=== PATIENT | female | born 1925 | race African-American/Black ===

== ENCOUNTER 2016-06-09 18:09 | Inpatient (IN) | payer MEDICARE, BC, MEDICAID ==
[~2016-06-09] VITALS: Ht 165.1 cm; Wt 69.6 kg
[~2016-06-09 18:09] MED LIST: ACET-2178 PO; AMLO10TA4 PO; ASPI-1035 PO; CINA30 PO; CLOP75TA33 PO; DOCU-138 PO; DOXA4TAB2 PO; IPRA3AMP9 INH; ISOS60TA4 PO; LEVO50TA70 PO; LOSA50TA3 PO; MEMA10TA11 PO; METO25TA6 PO; NEPVIT PO; OMEP20TA80 PO
[2016-06-09] MEDS ORDERED: METHYLPREDNISOLONE SOD SUCC 125 MG/2 ML VIAL IV STA (18:25)
[2016-06-09] MEDS ORDERED: ASPIRIN 81MG TABLET PO STA (18:25)
[2016-06-09] MEDS ORDERED: IPRATROPIUM/ALBUTEROL 0.5-3(2.5)MG/3ML NEB HHN ONE (18:30)
[2016-06-09] MEDS ORDERED: LEVOFLOXACIN 750MG PREMIX 150 ML IV ONE (18:30)
[2016-06-09 18:53] LABS: BG BASE EXCESS 6.3 mmol/L (-2.0-2.0); BG CARBOXYHEMOGLOBIN 1.7 % (0.5-1.5); BG FRACTION INSPIRED OXYGEN 28; BG HCO3 ACT 32.4 mmol/L (22.0-26.0); BG METHEMOGLOBIN 0.4 % (0.0-1.5); BG OXYHEMOGLOBIN 96.9 % (94.0-97.0); BG PCO2 52.5 mmHg (35.0-45.0); BG PH 7.408 (7.350-7.450); BG PO2 116.7 mmHg (75.0-100.0); BG SAMPLE SITE LEFT BRACHIAL; BG TOTAL HEMOGLOBIN 13.7 g/dL (12.0-18.0); BG VENT MODE NASAL CANNULA
[2016-06-09 19:05] LABS: DIFFERENTIAL COMMENT 0; EOSINOPHILS % 7.4 % (0.0-5.0); HEMATOCRIT. 42.9 % (36.0-48.0); HEMOGLOBIN. 13.1 g/dL (12.0-16.0); LYMPHOCYTES % 9.9 % (20.0-50.0); MEAN CORPUSCULAR HEMOGLOBIN 26.2 pg (28.0-32.0); MEAN CORPUSCULAR HGB CONC 30.5 g/dL (31.0-37.0); MEAN PLATELET VOLUME 8.2 fl (7.4-10.4); MONOCYTES % 12.5 % (2.0-8.0); NEUTROPHILS % 69.2 % (40.0-76.0); PLATELET 101 x1000/uL (130-400); RED BLOOD CELL COUNT 4.99 mill/uL (4.2-5.4); RED CELL DISTRIBUTION WIDTH 18.3 % (11.6-14.6); WHITE BLOOD COUNT 6.4 x1000/uL (4.5-11.0)
[2016-06-09 19:11] LABS: INR 1.1; PARTIAL THROMBOPLASTIN TIME 33.4 sec (24.0-34.0); PROTHROMBIN TIME 11.2 sec
[2016-06-09 19:20] LABS: ALANINE AMINOTRANSFERASE 12 IU/L (13-61); ALBUMIN 3.3 g/dL (3.4-5.0); ANION GAP 11; CARBON DIOXIDE 35 mEq/L (21-32); CHLORIDE 97 mEq/L (98-107); CREATINE KINASE 25 IU/L (26-192); INDEX HEMOLYSI 2 (1-3); INDEX ICTERIC 1 (1-4); INDEX LIPEMIC 1 (1-3); LIPASE 96 IU/L (73-393); TROPONIN I < 0.02 ng/mL (0.00-0.04); UREA NITROGEN BLOOD 8 mg/dL (7-21); eGFR 21 mL/min (>60)
[2016-06-09 19:32] LABS: NT PRO B-TYPE NATRIURETIC PEP 104264 pg/mL (5-125)
[2016-06-09] MEDS ORDERED: ACETAMINOPHEN 325MG TABLET PO PRN (20:15)
[2016-06-09] MEDS ORDERED: LEVOFLOXACIN 500MG PREMIX 100 ML IV SCH (20:15)
[2016-06-09] MEDS ORDERED: DEXTROSE 50% WATER 50ML SYRINGE IV PRN (20:15)
[2016-06-09] MEDS ORDERED: CLONIDINE 0.1MG TABLET PO PRN (20:15)
[2016-06-09] MEDS ORDERED: ONDANSETRON HCL 4MG/2ML VIAL IV PRN (20:15)
[2016-06-09] MEDS ORDERED: MORPHINE SULFATE 2 MG/ML CPJ (NOT FOR IM USE) IV PRN (20:30)
[2016-06-09] MEDS: INSULIN LISPRO 100 UNITS/ML SUBCUT SCH (21:00)
[2016-06-09] MEDS: BLOOD SUGAR DIAGNOSTIC STRIP TEST SCH (21:00)
[2016-06-09] MEDS ORDERED: ZOLPIDEM TARTRATE 5MG TABLET PO PRN (22:37)
[2016-06-10] VITALS (7 sets, daily range): BP systolic 119–168; BP diastolic 56–89
[2016-06-10] MEDS: METHYLPREDNISOLONE SOD SUCC 125 MG/2 ML VIAL IV SCH ×3 (06:01→18:30)
[2016-06-10 06:35] LABS: BASOPHILS % 0.6 % (0.0-2.0); HEMATOCRIT. 39.8 % (36.0-48.0); HEMOGLOBIN. 12.6 g/dL (12.0-16.0); LYMPHOCYTES % 14.3 % (20.0-50.0); MEAN CORPUSCULAR HEMOGLOBIN 26.7 pg (28.0-32.0); MEAN CORPUSCULAR HGB CONC 31.6 g/dL (31.0-37.0); MEAN CORPUSCULAR VOLUME 84.5 fL (81.0-99.0); MEAN PLATELET VOLUME 8.7 fl (7.4-10.4); MONOCYTES % 1.9 % (2.0-8.0); NEUTROPHILS % 83.2 % (40.0-76.0); PLATELET 106 x1000/uL (130-400); RED BLOOD CELL COUNT 4.71 mill/uL (4.2-5.4); RED CELL DISTRIBUTION WIDTH 18.5 % (11.6-14.6); WHITE BLOOD COUNT 6.1 x1000/uL (4.5-11.0)
[2016-06-10] MEDS: IPRATROPIUM/ALBUTEROL 0.5-3(2.5)MG/3ML NEB INH SCH ×3 (06:38→21:01)
[2016-06-10] MEDS: BLOOD SUGAR DIAGNOSTIC STRIP TEST SCH ×4 (07:40→20:57)
[2016-06-10 07:54] LABS: ANION GAP 10; CALCIUM 9.2 mg/dL (8.5-10.1); CARBON DIOXIDE 35 mEq/L (21-32); CHLORIDE 95 mEq/L (98-107); INDEX HEMOLYSI 1 (1-3); INDEX ICTERIC 1 (1-4); INDEX LIPEMIC 1 (1-3); MAGNESIUM 2.6 mg/dL (1.8-2.4); PHOSPHORUS 1.6 mg/dL (2.5-4.9); TROPONIN I < 0.02 ng/mL (0.00-0.04); UREA NITROGEN BLOOD 17 mg/dL (7-21); eGFR 16 mL/min (>60)
[2016-06-10] MEDS: INSULIN LISPRO 100 UNITS/ML SUBCUT SCH ×4 (08:10→20:57)
[2016-06-10] MEDS: OMEPRAZOLE 20MG CAPSULE EXTENDED RELEASE PO SCH (09:16)
[2016-06-10] MEDS: ENOXAPARIN 30MG/0.3ML SYR SUBCUT SCH (09:20)
[2016-06-10] MEDS ORDERED: SODIUM CHLORIDE 0.9% 10ML VIAL ONE (12:59)
[2016-06-10] MEDS ORDERED: IOHEXOL-350 100 ML BOTTLE ONE (12:59)
[2016-06-10] MEDS ORDERED: SODIUM BICARBONATE 4% (2.4MEQ) 5ML VIAL IV ONE (13:06)
[2016-06-10] MEDS ORDERED: LIDOCAINE HCL 1% 20ML VIAL (Pyxis) INJ ONE (13:07)
[2016-06-10] MEDS ORDERED: DESMOPRESSIN ACETATE 4MCG/ML AMP IV ONE (19:15)
[2016-06-10] MEDS ORDERED: DESMOPRESSIN ACETATE 21 MCG in SODIUM CHLORIDE 0.9% 50 ML IV NR (21:00)
[2016-06-10 23:14] LABS: HEMOGLOBIN 11.7 g/dL (12.0-16.0)
[2016-06-11] VITALS: BP 123/89
[2016-06-11] MEDS: IPRATROPIUM/ALBUTEROL 0.5-3(2.5)MG/3ML NEB INH SCH ×4 (03:22→21:23)
[2016-06-11 04:00] VITALS: BP 123/70
[2016-06-11] MEDS: METHYLPREDNISOLONE SOD SUCC 125 MG/2 ML VIAL IV SCH ×3 (06:03→12:52)
[2016-06-11] MEDS: BLOOD SUGAR DIAGNOSTIC STRIP TEST SCH ×2 (07:40→12:59)
[2016-06-11 08:00] VITALS: BP 144/66
[2016-06-11] MEDS: INSULIN LISPRO 100 UNITS/ML SUBCUT SCH ×2 (08:10→12:59)
[2016-06-11] MEDS: OMEPRAZOLE 20MG CAPSULE EXTENDED RELEASE PO SCH (08:32)
[2016-06-11] MEDS: ENOXAPARIN 30MG/0.3ML SYR SUBCUT SCH (08:33)
[2016-06-11 10:00] LABS: BASOPHILS % 0.2 % (0.0-2.0); HEMATOCRIT. 37.1 % (36.0-48.0); HEMOGLOBIN. 11.4 g/dL (12.0-16.0); MEAN CORPUSCULAR HEMOGLOBIN 26.1 pg (28.0-32.0); MEAN CORPUSCULAR HGB CONC 30.8 g/dL (31.0-37.0); MEAN CORPUSCULAR VOLUME 84.6 fL (81.0-99.0); MEAN PLATELET VOLUME 9.2 fl (7.4-10.4); MONOCYTES % 8.4 % (2.0-8.0); NEUTROPHILS % 81.4 % (40.0-76.0); PLATELET 124 x1000/uL (130-400); RED BLOOD CELL COUNT 4.39 mill/uL (4.2-5.4); RED CELL DISTRIBUTION WIDTH 18.3 % (11.6-14.6); WHITE BLOOD COUNT 12.6 x1000/uL (4.5-11.0)
[2016-06-11 10:31] LABS: CALCIUM 9.5 mg/dL (8.5-10.1)
[2016-06-11 12:00] VITALS: BP 124/61
[2016-06-11 16:00] VITALS: BP 121/66
[2016-06-11] MEDS: PREDNISONE 20MG TABLET PO SCH (16:43)
[2016-06-11 20:00] VITALS: BP 142/75
[2016-06-11] MEDS ORDERED: LEVOFLOXACIN 250MG PREMIX 50 ML IV SCH (20:00)
[2016-06-11] MEDS: BACITRACIN ZINC 15GM TUBE TOP SCH (20:01)
[2016-06-12] VITALS: BP 142/67
[2016-06-12] MEDS: IPRATROPIUM/ALBUTEROL 0.5-3(2.5)MG/3ML NEB INH SCH ×3 (02:53→15:57)
[2016-06-12 04:00] VITALS: BP 152/73
[2016-06-12 07:31] LABS: BASOPHILS % 0.1 % (0.0-2.0); HEMATOCRIT. 36.2 % (36.0-48.0); HEMOGLOBIN. 11.3 g/dL (12.0-16.0); LYMPHOCYTES % 10.4 % (20.0-50.0); MEAN CORPUSCULAR HEMOGLOBIN 26.1 pg (28.0-32.0); MEAN CORPUSCULAR HGB CONC 31.2 g/dL (31.0-37.0); MEAN CORPUSCULAR VOLUME 83.6 fL (81.0-99.0); MEAN PLATELET VOLUME 8.6 fl (7.4-10.4); NEUTROPHILS % 82.5 % (40.0-76.0); PLATELET 148 x1000/uL (130-400); RED BLOOD CELL COUNT 4.33 mill/uL (4.2-5.4); RED CELL DISTRIBUTION WIDTH 18.1 % (11.6-14.6)
[2016-06-12 08:11] VITALS: BP 156/107
[2016-06-12] MEDS: OMEPRAZOLE 20MG CAPSULE EXTENDED RELEASE PO SCH (08:14)
[2016-06-12] MEDS: ENOXAPARIN 30MG/0.3ML SYR SUBCUT SCH (08:14)
[2016-06-12] MEDS: PREDNISONE 20MG TABLET PO SCH (08:14)
[2016-06-12 08:19] LABS: CALCIUM 9.4 mg/dL (8.5-10.1)
[2016-06-12] MEDS: BACITRACIN ZINC 15GM TUBE TOP SCH (08:22)
[2016-06-12 12:00] VITALS: BP 131/73
[2016-06-12 16:00] VITALS: BP 135/65
[2016-06-12 16:08] VITALS: BP 135/65
== END 2016-06-12 17:50 | DRG 291 ==
LOC: ER 18:09 → 7WST 20:09
PROVIDERS: ADMIT Internal Medicine Nephrology; ATTEND Internal Medicine Nephrology
PROC: 02HV33Z Insertion of Infusion Device into Superior Vena Cava, Percutaneous Approach (ICD-10-PCS; principal; 2016-06-10)
PROC: B5181ZA Fluoroscopy of Superior Vena Cava using Low Osmolar Contrast, Guidance (ICD-10-PCS; 2016-06-10)
PROC: B548ZZA Ultrasonography of Superior Vena Cava, Guidance (ICD-10-PCS; 2016-06-10)
PROC: 5A1D60Z (ICD-10-PCS; 2016-06-10)
DX: I13.2 Hypertensive heart and chronic kidney disease with heart failure and with stage 5 chronic kidney disease, or end stage renal disease (principal); N18.6 End stage renal disease; I50.20 Unspecified systolic (congestive) heart failure; D69.6 Thrombocytopenia, unspecified; E03.9 Hypothyroidism, unspecified; E11.22 Type 2 diabetes mellitus with diabetic chronic kidney disease; I48.91 Unspecified atrial fibrillation; J44.9 Chronic obstructive pulmonary disease, unspecified; J45.909 Unspecified asthma, uncomplicated; Z79.82 Long term (current) use of aspirin; Z82.49 Family history of ischemic heart disease and other diseases of the circulatory system; Z99.2 Dependence on renal dialysis; Z87.01 Personal history of pneumonia (recurrent); Z88.0 Allergy status to penicillin; Z88.2 Allergy status to sulfonamides; Z79.899 Other long term (current) drug therapy
CPT/HCPCS: 36415; 36569; 36600; 71010; 71275; 76937; 77001; 78580; 80048; 80053; 82375; 82550; 82805; 82962; 83605; 83690; 83735; 83880; 84100; 84443; 84484; 85014; 85018; 85025; 85610; 85730; 87040; 93005; 93970; 94640; 94664; 96365; 96375; 99285; A4216; C1725; J1650; J1956; J2597; J2930; J3490; J7030; J7050; J7512; J7620; Q9967

== ENCOUNTER 2017-04-11 12:07 | Inpatient (IN) | payer MEDICARE, BC, MEDICAID ==
[~2017-04-11] VITALS: Ht 162.6 cm; Wt 82.6 kg
[~2017-04-11 12:07] MED LIST changes: -ASPI-1035 PO; +ASPI-1159 PO; +DUONEB3 ML INH; -IPRA3AMP9 INH; +LEVO50TA PO; -LEVO50TA70 PO; -MEMA10TA11 PO; +MEMA10TA2 PO; +OMEP20TA2 PO; -OMEP20TA80 PO
[2017-04-11] MEDS ORDERED: ONDANSETRON HCL 4MG/2ML VIAL IV PRN (14:00)
[2017-04-11] MEDS ORDERED: CLONIDINE 0.1MG TABLET PO PRN (14:00)
[2017-04-11] MEDS ORDERED: ACETAMINOPHEN 325MG TABLET PO PRN (14:00)
[2017-04-11] MEDS ORDERED: IPRATROPIUM/ALBUTEROL 0.5-3(2.5)MG/3ML NEB INH SCH (14:00)
[2017-04-11] MEDS ORDERED: HYDROMORPHONE HCL/PF 2MG/ML CPJ IV PRN (14:00)
[2017-04-11 14:52] LABS: BASOPHILS % 0.7 % (0.0-2.0); EOSINOPHILS % 8.8 % (0.0-5.0); HEMATOCRIT. 36.3 % (36.0-48.0); LYMPHOCYTES % 16.9 % (20.0-50.0); MEAN CORPUSCULAR HEMOGLOBIN 26.6 pg (28.0-32.0); MEAN CORPUSCULAR VOLUME 80.5 fL (81.0-99.0); MONOCYTES % 10.3 % (2.0-8.0); NEUTROPHILS % 63.3 % (40.0-76.0); PLATELET 106 x1000/uL (130-400); RED BLOOD CELL COUNT 4.51 mill/uL (4.2-5.4)
[2017-04-11 14:59] LABS: INR 1.1; PARTIAL THROMBOPLASTIN TIME 29.4 sec (23.4-31.0); PROTHROMBIN TIME 11.2 sec (9.4-11.6)
[2017-04-11 15:11] LABS: CARBON DIOXIDE 24 mEq/L (21-32); CHLORIDE 93 mEq/L (98-107); TROPONIN I < 0.02 ng/mL (0.00-0.04)
[2017-04-11] MEDS ORDERED: VANCOMYCIN 1 G PREMIX 200 ML IV SCH (15:15)
[2017-04-11] MEDS ORDERED: SODIUM BICARBONATE 4% (2.4MEQ) 5ML VIAL IV ONE (15:49)
[2017-04-11 17:45] VITALS: BP 149/80
[2017-04-11 18:00] VITALS: BP 149/80
[2017-04-11] MEDS ORDERED: VANCOMYCIN 500 MG PREMIX 100 ML IV NR (18:30)
[2017-04-11 20:00] VITALS: BP 141/69
[2017-04-11] MEDS ORDERED: DOCU250C69 PO (23:44)
[2017-04-11] MEDS ORDERED: COR3 PO (23:46)
[2017-04-12] VITALS: BP 125/60
[2017-04-12 04:00] VITALS: BP 141/56
[2017-04-12 08:00] VITALS: BP 144/65
[2017-04-12] MEDS ORDERED: ASPIRIN 81MG EC TABLET PO SCH (09:00)
[2017-04-12] MEDS ORDERED: CLOPIDOGREL 75MG TABLET PO SCH (09:00)
[2017-04-12 09:24] LABS: BASOPHILS % 0.4 % (0.0-2.0); EOSINOPHILS % 6.2 % (0.0-5.0); HEMATOCRIT. 32.6 % (36.0-48.0); HEMOGLOBIN. 10.7 g/dL (12.0-16.0); LYMPHOCYTES % 14.2 % (20.0-50.0); MEAN CORPUSCULAR HEMOGLOBIN 26.4 pg (28.0-32.0); MEAN CORPUSCULAR VOLUME 80.4 fL (81.0-99.0); MEAN PLATELET VOLUME 9.1 fl (7.4-10.4); MONOCYTES % 12.9 % (2.0-8.0); NEUTROPHILS % 66.3 % (40.0-76.0); PLATELET 98 x1000/uL (130-400); RED BLOOD CELL COUNT 4.05 mill/uL (4.2-5.4); RED CELL DISTRIBUTION WIDTH 17.9 % (11.6-14.6)
[2017-04-12 09:59] LABS: CARBON DIOXIDE 28 mEq/L (21-32); CHLORIDE 99 mEq/L (98-107); HDL CHOLESTEROL 57 mg/dL (40-59); LDL CHOLESTEROL 92 mg/dL (5-100)
[2017-04-12] MEDS ORDERED: HEPARIN SODIUM 1,000 UNIT/1ML VIAL IV NR (10:45)
[2017-04-12 11:26] LABS: TOTAL IRON BINDING CAPACITY 103 ug/dL (250-450)
[2017-04-12 12:00] VITALS: BP 131/67
[2017-04-12] MEDS ORDERED: VANCOMYCIN 1 G PREMIX 200 ML IV SCH (12:00)
[2017-04-12] MEDS: CARVEDILOL 3.125 MG TABLET PO SCH (12:05)
[2017-04-12] MEDS: LEVOTHYROXINE SODIUM 50MCG TABLET PO SCH ×2 (13:15→14:48)
[2017-04-12] MEDS: MEMANTINE HCL 5MG TABLET PO SCH (13:17)
[2017-04-12] MEDS: DOCUSATE SODIUM 250MG CAPSULE PO SCH (13:17)
[2017-04-12 16:00] VITALS: BP 148/65
[2017-04-12 20:00] VITALS: BP 145/64
[2017-04-13] VITALS: BP 120/53
[2017-04-13 04:00] VITALS: BP 152/66
[2017-04-13] MEDS: LEVOTHYROXINE SODIUM 50MCG TABLET PO SCH (06:18)
[2017-04-13 08:00] VITALS: BP 133/69
[2017-04-13 08:10] LABS: HEMATOCRIT. 33.9 % (36.0-48.0); MEAN CORPUSCULAR HEMOGLOBIN 26.4 pg (28.0-32.0); MEAN CORPUSCULAR VOLUME 81.1 fL (81.0-99.0); MEAN PLATELET VOLUME 9.5 fl (7.4-10.4); PLATELET 90 x1000/uL (130-400); RED BLOOD CELL COUNT 4.18 mill/uL (4.2-5.4); RED CELL DISTRIBUTION WIDTH 18.3 % (11.6-14.6)
[2017-04-13] MEDS: DOCUSATE SODIUM 250MG CAPSULE PO SCH (09:17)
[2017-04-13] MEDS: MEMANTINE HCL 5MG TABLET PO SCH (09:17)
[2017-04-13 12:00] VITALS: BP 157/75
[2017-04-13 15:56] LABS: PLATELET ESTIMATE DECREASED
[2017-04-13 16:00] VITALS: BP 172/81
[2017-04-13 20:00] VITALS: BP 144/66
[2017-04-14] VITALS: BP 165/72
[2017-04-14 04:00] VITALS: BP 101/54
[2017-04-14] MEDS: LEVOTHYROXINE SODIUM 50MCG TABLET PO SCH (06:16)
[2017-04-14 06:49] LABS: HEMATOCRIT. 32.8 % (36.0-48.0); HEMOGLOBIN. 10.7 g/dL (12.0-16.0); MEAN CORPUSCULAR HEMOGLOBIN 26.6 pg (28.0-32.0); MEAN CORPUSCULAR VOLUME 81.2 fL (81.0-99.0); MEAN PLATELET VOLUME 8.9 fl (7.4-10.4); PLATELET 96 x1000/uL (130-400); RED BLOOD CELL COUNT 4.04 mill/uL (4.2-5.4); RED CELL DISTRIBUTION WIDTH 17.7 % (11.6-14.6)
[2017-04-14 08:00] VITALS: BP 123/61
[2017-04-14] MEDS ORDERED: ASPIRIN 81MG EC TABLET PO SCH (09:00)
[2017-04-14] MEDS ORDERED: CLOPIDOGREL 75MG TABLET PO SCH (09:00)
[2017-04-14] MEDS: CARVEDILOL 3.125 MG TABLET PO SCH (09:39)
[2017-04-14] MEDS: DOCUSATE SODIUM 250MG CAPSULE PO SCH (09:40)
[2017-04-14] MEDS: MEMANTINE HCL 5MG TABLET PO SCH (09:40)
[2017-04-14 12:00] VITALS: BP 120/57
[2017-04-14 14:10] LABS: PLATELET ESTIMATE SLIGHTLY DECREASED
[2017-04-14 16:41] VITALS: BP 120/57
[2017-04-16] MEDS ORDERED: CARVEDILOL 3.125 MG TABLET PO SCH (09:00)
== END 2017-04-14 18:30 | DRG 640 ==
LOC: ER 14:35 → 6EST 15:09 → EDBEDREQ 15:12 → EDBEDREQSVC 15:12 → ENRESERV 16:09
PROVIDERS: ADMIT Internal Medicine Nephrology; ATTEND Internal Medicine Nephrology
PROC: 02HV33Z Insertion of Infusion Device into Superior Vena Cava, Percutaneous Approach (ICD-10-PCS; principal; 2017-04-11)
PROC: B5181ZA Fluoroscopy of Superior Vena Cava using Low Osmolar Contrast, Guidance (ICD-10-PCS; 2017-04-11)
PROC: B548ZZA Ultrasonography of Superior Vena Cava, Guidance (ICD-10-PCS; 2017-04-11)
PROC: 5A1D70Z Performance of Urinary Filtration, Intermittent, Less than 6 Hours Per Day (ICD-10-PCS; 2017-04-12)
DX: E87.1 Hypo-osmolality and hyponatremia (principal); N18.6 End stage renal disease; I13.2 Hypertensive heart and chronic kidney disease with heart failure and with stage 5 chronic kidney disease, or end stage renal disease; D68.9 Coagulation defect, unspecified; D69.6 Thrombocytopenia, unspecified; E11.22 Type 2 diabetes mellitus with diabetic chronic kidney disease; I42.9 Cardiomyopathy, unspecified; I50.22 Chronic systolic (congestive) heart failure; D64.9 Anemia, unspecified; E03.9 Hypothyroidism, unspecified; F03.90 Unspecified dementia, unspecified severity, without behavioral disturbance, psychotic disturbance, mood disturbance, and anxiety; I25.10 Atherosclerotic heart disease of native coronary artery without angina pectoris; J44.9 Chronic obstructive pulmonary disease, unspecified; Y83.2 Surgical operation with anastomosis, bypass or graft as the cause of abnormal reaction of the patient, or of later complication, without mention of misadventure at the time of the procedure; Z79.82 Long term (current) use of aspirin; Z82.49 Family history of ischemic heart disease and other diseases of the circulatory system; Z86.73 Personal history of transient ischemic attack (TIA), and cerebral infarction without residual deficits; Z88.0 Allergy status to penicillin; Z99.2 Dependence on renal dialysis; Z88.2 Allergy status to sulfonamides
CPT/HCPCS: 36415; 36556; 71010; 76937; 77001; 80048; 80053; 80061; 80202; 83540; 83550; 83880; 84443; 84484; 85025; 85610; 85730; 87040; 87070; 87077; 87186; 87205; 93005; 93306; 93970; 97110; 97162; 97530; 99285; C1752; C1769; C1887; J1642; J1644; J3370; J3490; J7030; J7040